=== PATIENT | female | born 1935 | race Caucasian/White ===

== ENCOUNTER → 2018-02-18 | Outpatient (CLI) | payer MEDICARE ==
--- NOTE | 2018-02-19 16:19 | EKG ---
Date Performed: 02/18/2018 Time Performed: 14:15:20 PTAGE: 82 years EKG: Atrial fibrillation. Abnormal ECG PREVIOUS TRACING : 07/24/1997 09.42 Atrial fibrillation is new since prior tracing. Clinical co rrelation is recommended. DOCTOR: Mack Muniz Interpretating Date/Time 02/19/2018 16:17:27
== END ==
LOC: HCAV 14:04
PROVIDERS: ATTEND Internal Medicine Hematology & Oncology
DX: D47.3 Essential (hemorrhagic) thrombocythemia (principal); R94.31 Abnormal electrocardiogram [ECG] [EKG]
CPT/HCPCS: 93005

== ENCOUNTER 2018-09-09 14:39 | Inpatient (IN) ==
--- NOTE | 2018-09-09 16:54 | ED ---
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 The patient follows with heme/onc for thrombocytosis and states that she went for routine blood work today. She later received a phone call stating that her hemoglobin was low (around 5) and to go to the ED. She denies lightheadedness, dizziness, fatigue, weakness, chills, chest pain, dyspnea, or palpitations. She has not noticed any bloody or black/ tarry stools. She takes Eliquis for A fib. Related Data Home Medications Medication Instructions Recorded Confirmed apixaban [Eliquis] 5 mg PO BID 09/09/18 09/09/18 atorvastatin 20 mg PO DAILY 09/09/18 09/09/18 diltiazem HCl 360 mg PO DAILY 09/09/18 09/09/18 furosemide 40 mg PO DAILY 09/09/18 09/09/18 hydroxyurea 500 mg PO BID 09/09/18 09/09/18 levothyroxine 200 mcg PO DAILY 09/09/18 09/09/18 Allergies Allergy/AdvReac Type Severity Reaction Status Date / Time Iodinated Contrast- Oral and Allergy Rash Verified 09/09/18 17:41 IV Dye [Contrast] Review of Systems ROS: all other systems reviewed are negative Constitutional Denies fever(s) Eyes Denies blurry vision ENT Denies nasal congestion Cardiovascular Denies chest pain Respiratory Denies cough Gastrointestinal Denies nausea Genitourinary Denies dysuria Musculoskeletal Denies back pain Neurologic Denies confusion Psychiatric Denies confusion PMFSH History History Provided By: Patient Medical History Medical History A-fib (Acute) COPD (chronic obstructive pulmonary disease) (Acute) HTN (hypertension) (Acute) Thrombocytosis (Acute) Surgical History Surgical History H/O hysterectomy for benign disease (Acute) S/P breast lumpectomy (Acute) Social History Social History Substance History: No History of Abuse Second Hand Smoke Exposure: No Smoking Status: Current some day smoker Tobacco Type: Cigarettes How Often Do You Have a Drink Containing Alcohol: 4 or more times a week Recent Travel in [facility] within the Last 8 Weeks: No Recent Out of Country Travel within the Last 8 Weeks: No Immunization History Tetanus Immunization: <5 Years Exam Const General: healthy appearing and no acute distress [facility] Head: normocephalic and atraumatic Face and sinus: normal facial exam Other: Mucosa pale Eyes General: appearance normal, both eyes and all related structures Pupils: PERRL Chest Chest: normal inspection of the chest Resp Effort & Inspection: normal respiratory effort Auscultation: no rhonchi and no wheezes Cardio Rate: regular rate Rhythm: regular rhythm GI Other: Soft and non-tender in all quadrants Other: Normal external rectal exam, no fissures or hemorrhoids noted. Stool black, guaiac positive. Rectal exam chaperoned by RN. Skin General: no rashes or lesions noted Neuro General: alert, awake, oriented x3 and no focal motor deficits Psych Affect: normal affect Procedures Hemaprompt Stool Procedural Steps Taken: specimen placed in appropriate test area, developer placed on specimen and control areas and controls appropriately positive and negative Hemaprompt Stool Result: positive Course Initial Documented Vital Signs Temperature 98.0 F 09/09/18 14:49 Pulse Rate 89 09/09/18 14:49 Respiratory Rate 18 09/09/18 14:49 Blood Pressure 167/74 H 09/09/18 14:49 Pulse Oximetry 97 09/09/18 14:49 Last Documented Vital Signs Temperature 98.0 F 09/09/18 14:49 Pulse Rate 85 09/09/18 16:39 Respiratory Rate 22 09/09/18 16:39 Blood Pressure 173/73 H 09/09/18 16:39 Pulse Oximetry 98 09/09/18 16:[address] [facility] Narrative Medical decision making narrative: Assessment: 83yF presenting with anemia and guaiac (+) stools Plan: EKG and monitor Labs, including type and screen Non-contrast CT abd/pelvis (patient reports IV contrast allergy) Addendum: Patient found to have a hemoglobin of 6.2, no other significant abnormalities on labs. She has a 4 cm AAA which she knew about, says that she believes it was 2 or 3 cm when it was last checked 3 years ago, is due to have it rechecked in October or November. 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 She will need transfusion of blood, re-evaluation, and consultation. Case discussed with Dr. Hudson ( resident), patient to be admitted under Dr. Daigle. Medical Screen Exam Complete: Yes Emergency Medical Condition: Yes Differential Diagnosis Differential Diagnosis: Differential diagnosis includes, but is not limited to: diverticulosis, colitis, AVM, internal hemorrhoid, mass, medication-induced coagulopathy Medical Records Medical records reviewed: Yes I reviewed the patient's medical records. Lab Data Lab results reviewed: Yes I reviewed the patient's lab results. Result diagrams: 09/09/18 17:15 09/09/18 17:15 Lab Results 09/09/18 09/09/18 09/09/18 Range/Units 17:15 17:15 17:15 WBC 9.8 (4.0-11.0) th/mm3 RBC 1.96 L (4.00-5.30) mil/mm3 Hgb 6.2 L* (11.6-15.3) gm/dL Hct 19.8 L* (35.0-46.0) % MCV 101.4 H (80.0-100.0) fL MCH 31.9 (27.0-34.0) pg MCHC 31.4 L (32.0-36.0) % RDW 17.7 H (11.6-17.2) % Plt Count 258 (150-450) th/mm3 MPV 7.9 (7.0-11.0) fL Prelim Diff (Auto) Slide review pending Neut % (Auto) 67.0 (16.0-70.0) % Lymph % (Auto) 17.8 (9.0-44.0) % Forrest % (Auto) 13.8 H (0.0-8.0) % Eos % (Auto) 1.0 (0.0-4.0) % Baso % (Auto) 0.4 (0.0-2.0) % Neut # (Auto) 6.6 (1.8-7.7) th/mm3 Lymph # (Auto) 1.8 (1.0-4.8) th/mm3 Forrest # (Auto) 1.4 H (0.0-0.9) th/mm3 Eos # (Auto) 0.1 (0.0-0.4) th/mm3 Baso # (Auto) 0.0 (0.0-0.2) th/mm3 WBC Differential . Diff Scan Auto diff confirmed Differential Comment . PT 11.4 (9.8-11.6) sec INR 1.1 Ratio APTT 26.1 (24.3-30.1) sec Sodium 135 L (136-145) meq/L Potassium 3.2 L (3.5-5.1) meq/L Chloride 97 L (98-107) meq/L Carbon Dioxide 28.5 (21.0-32.0) meq/L Anion Gap 10 (5-15) meq/L BUN 15 (7-18) mg/dL Creatinine 0.84 (0.50-1.00) mg/dL Estimated GFR 65 L (>89) mL/min Random Glucose 122 H (74-106) mg/dL Calcium 8.4 L (8.5-10.1) mg/dL Magnesium 1.8 (1.5-2.5) mg/dL Total Bilirubin 0.6 (0.2-1.0) mg/dL AST 14 L (15-37) U/L ALT 19 (10-53) U/L Alkaline Phosphatase 86 (45-117) U/L Total Protein 6.9 (6.4-8.2) g/dL Albumin 3.5 (3.4-5.0) g/dL Lipase 58 L (73-393) U/L Blood Type Blood Type Recheck Antibody Screen 09/09/18 Range/Units 17:17 WBC (4.0-11.0) th/mm3 RBC (4.00-5.30) mil/mm3 Hgb (11.6-15.3) gm/dL Hct (35.0-46.0) % MCV (80.0-100.0) fL MCH (27.0-34.0) pg MCHC (32.0-36.0) % RDW (11.6-17.2) % Plt Count (150-450) th/mm3 MPV (7.0-11.0) fL Prelim Diff (Auto) Neut % (Auto) (16.0-70.0) % Lymph % (Auto) (9.0-44.0) % Forrest % (Auto) (0.0-8.0) % Eos % (Auto) (0.0-4.0) % Baso % (Auto) (0.0-2.0) % Neut # (Auto) (1.8-7.7) th/mm3 Lymph # (Auto) (1.0-4.8) th/mm3 Forrest # (Auto) (0.0-0.9) th/mm3 Eos # (Auto) (0.0-0.4) th/mm3 Baso # (Auto) (0.0-0.2) th/mm3 WBC Differential Diff Scan Differential Comment PT (9.8-11.6) sec INR Ratio APTT (24.3-30.1) sec Sodium (136-145) meq/L Potassium (3.5-5.1) meq/L Chloride (98-107) meq/L Carbon Dioxide (21.0-32.0) meq/L Anion Gap (5-15) meq/L BUN (7-18) mg/dL Creatinine (0.50-1.00) mg/dL Estimated GFR (>89) mL/min Random Glucose (74-106) mg/dL Calcium (8.5-10.1) mg/dL Magnesium (1.5-2.5) mg/dL Total Bilirubin (0.2-1.0) mg/dL AST (15-37) U/L ALT (10-53) U/L Alkaline Phosphatase (45-117) U/L Total Protein (6.4-8.2) g/dL Albumin (3.4-5.0) g/dL Lipase (73-393) U/L Blood Type O Positive Blood Type Recheck Required Antibody Screen Negative Imaging Data Attestation: I personally reviewed and interpreted this imaging study as follows : Radiologist's impression: Abdomen/Pelvis CT 09/09/18 16:35 CONCLUSION: 1. Infrarenal abdominal aortic aneurysm measuring 4.3 x 4.4 cm. 2. Multiple liver and splenic granulomas. 3. Diffuse atherosclerotic changes throughout the aorta. 4. Scattered diverticulosis involving the descending and sigmoid colon without inflammatory changes. Discharge Plan Discharge Disposition Patient Disposition: 30 Still Patient Discharge Condition Condition: Stable Discharge Details Diagnosis: Acute lower gastrointestinal bleeding, Anemia requiring transfusions, Medication induced coagulopathy Physicians Team ED Provider: Matilda Gomez Primary Care Provider: Xavi Wen Rxs /Orders / Referrals /Forms Prescriptions: No Action furosemide 40 mg Tablet 40 mg PO DAILY RF: 0 hydroxyurea 500 mg Capsule 500 mg PO BID RF: 0 atorvastatin 20 mg Tablet 20 mg PO DAILY RF: 0 diltiazem HCl 360 mg Capsule,Extended Release 24hr 360 mg PO DAILY RF: 0 apixaban [Eliquis] 5 mg Tablet 5 mg PO BID RF: 0 levothyroxine 200 mcg Tablet 200 mcg PO DAILY RF: 0 Discharge Interventions Interventions: Vital Signs Last Done: 09/09/18 16:39 Status ED Status: With Doctor
--- NOTE | 2018-09-09 17:29 | CT ---
EXAM DATE: 09/09/2018 4:51 PM EDT AGE/SEX: 83 years / Female INDICATIONS: Blood in stool. CLINICAL DATA: This is the patient's initial encounter. Patient reports that signs and symptoms have been present for 1 day and indicates a pain score of 0/10. MEDICAL/SURGICAL HISTORY: Chronic obstructive pulmonary disease. Hypertension. Cardiovascular disease. Hysterectomy. RADIATION DOSE: 14.58 CTDI (mGy) COMPARISON: No prior exams available for comparison. TECHNIQUE: Multiple contiguous axial images were obtained through the abdomen. Images were obtained using multiple row detector helical technique. Using automated exposure control and adjustment of the mA and/or kV according to patient size, radiation dose was kept as low as reasonably achievable to o btain optimal diagnostic quality images. DICOM format image data is available electronically for rev iew and comparison. FINDINGS: Lower Lungs: Scarring in both lung bases. Otherwise the lung bases are grossly clear. Liver: The liver has a homogeneous density without space-occupying lesion. Multiple calcified granulo mas are seen throughout the liver. The gallbladder is unremarkable. There is no dilation of the bilia ry tree. Spleen: Homogeneous density without enlargement. Multiple splenic granulomas. Pancreas: Unremarkable without mass or calcification. Kidneys: Normal in size and shape. No evidence of mass or hydronephrosis. There are vascular calcifi cations bilaterally. No definite renal calculi are seen. However, this may be limited due to the vasc ular calcifications. Adrenal Glands: Unremarkable. Aorta: There is aneurysmal dilatation of the infrarenal abdominal aorta measuring 4.3 x 4.4 cm. Dif fuse atherosclerotic changes are seen throughout the aorta. Bowel/Mesentery: The bowel loops are grossly unremarkable. The cecum and sigmoid colon have a normal configuration. Scattered diverticulosis throughout the descending and sigmoid colon without inflamma tory changes. The appendix is unremarkable. No inflammatory changes are seen. No free fluid or locula faustino fluid collections. There is stool throughout the colon. Abdominal Wall: Intact. Retroperitoneum: No evidence of adenopathy in the retrocrural, para-aortic, or deep pelvic regions. Bladder: Contours are smooth. Reproductive Organs: No abnormal masses or calcifications seen. Inguinal: The inguinal region is unremarkable without evidence of adenopathy. Bony Structures: Diffuse bony degenerative changes. There is old compression injuries involving L2 a nd L3. CONCLUSION: 1. Infrarenal abdominal aortic aneurysm measuring 4.3 x 4.4 cm. 2. Multiple liver and splenic granulomas. 3. Diffuse atherosclerotic changes throughout the aorta. 4. Scattered diverticulosis involving the descending and sigmoid colon without inflammatory changes. Electronically signed by: Douglas Mortensen MD 09/09/2018 5:27 PM EDT
[2018-09-09 17:35] LABS: Baso % (Auto) 0.4 % (0.0-2.0); Eos # (Auto) 0.1 th/mm3 (0.0-0.4); Lymph # (Auto) 1.8 th/mm3 (1.0-4.8); Lymph % (Auto) 17.8 % (9.0-44.0); Mean Corpuscular HGB Conc 31.4 % (32.0-36.0); Mean Corpuscular Hemoglobin 31.9 pg (27.0-34.0); Mean Corpuscular Volume 101.4 fL (80.0-100.0); Mean Platelet Volume 7.9 fL (7.0-11.0); Mono # (Auto) 1.4 th/mm3 (0.0-0.9); Mono % (Auto) 13.8 % (0.0-8.0); Neut # (Auto) 6.6 th/mm3 (1.8-7.7); Platelet Count 258 th/mm3 (150-450); Red Blood Count 1.96 mil/mm3 (4.00-5.30); Red Cell Distribution Width 17.7 % (11.6-17.2); White Blood Count 9.8 th/mm3 (4.0-11.0)
[2018-09-09 17:42] LABS: Activated Partial Thrombo Time 26.1 sec (24.3-30.1); INR 1.1 Ratio; Prothrombin Time 11.4 sec (9.8-11.6)
[2018-09-09 17:45] LABS: Hematocrit 19.8 % (35.0-46.0); Hemoglobin 6.2 gm/dL (11.6-15.3)
[2018-09-09 17:53] LABS: Alanine Aminotransferase 19 U/L (10-53); Albumin 3.5 g/dL (3.4-5.0); Anion Gap 10 meq/L (5-15); Aspartate Aminotransferase 14 U/L (15-37); Blood Urea Nitrogen 15 mg/dL (7-18); Calcium 8.4 mg/dL (8.5-10.1); Carbon Dioxide 28.5 meq/L (21.0-32.0); Chloride 97 meq/L (98-107); Glomerular Filtration Rate 65 mL/min (>89); Glucose,Random 122 mg/dL (74-106); Lipase 58 U/L (73-393); Magnesium 1.8 mg/dL (1.5-2.5); Potassium 3.2 meq/L (3.5-5.1); Sodium 135 meq/L (136-145)
[2018-09-09 17:56] LABS: Alkaline Phosphatase 86 U/L (45-117); Total Protein 6.9 g/dL (6.4-8.2)
[2018-09-09] MEDS ORDERED: Sodium Chlor 0.9% Inj 250 ML IV.SIG SCH (19:00)
--- NOTE | 2018-09-09 19:11 | P.HPFP ---
History of Present Illness Primary Care Physician: Xavi Wen MD History of Present Illness: This patient is an 83-year-old female with a past medical history of thrombocytosis, atrial fibrillation on Eliquis, and uterine cancer in remission who presented to the ED after being found to have a hemoglobin of 6.2 on routine blood work. Patient reports that she was undergoing routine blood work for thrombocytosis when she was called later on in the day and was told that she had a critical value for her hemoglobin. Patient reports that she has been experiencing fatigue and tiredness over the last several weeks. During this time patient denies experiencing any dizziness, vision changes beyond those experienced after undergoing cataract surgery last week, as well as any changes in stool, bowel habits, or stool color. She denies visualizing any blood in the stool. She also denies any nausea or vomiting and reports that she normally has a bowel movement every 3 days with her last bowel movement being yesterday. Patient does report chronic shortness of breath due to her COPD. Patient reports that her last colonoscopy was 8-10 years ago which she says showed no polyps or issues. PMHx: Thrombocytosis diagnosed 4 years ago, HTN, COPD, CHF, Hypothyroidism, A- fib, Meds: Eliquis, atorvastatin, diltiazem, furosemide, hydroxyurea, levothyroxine Surgical Hx: Bilateral cataract surgery (one eye completed last Sunday and the other at the Sunday before that), total hysterectomy with bilateral salpingo-oophorectomy 1998 Allergies: Iodinated contrast oral and IV dye Family History: None Social: since 2010, 2 sons in good health, Worked for [employer] for 30 years, smoked since the age of 15 and has a 60 pack-year history, 1 cocktail vodka on the rocks nightly sometimes two drinks, no no illicit or recreational drug use Code: Full code Heme/ Onc Dr. Scott PCP Beatriz Esparza - Diagnosis (1) Anemia requiring transfusions (2) Acute lower gastrointestinal bleeding (3) Atrial fibrillation (4) Abdominal aortic aneurysm (AAA) (5) Congestive heart failure (CHF) (6) Thrombocytosis (7) Hypertension (8) COPD (chronic obstructive pulmonary disease) (9) Hypothyroidism (10) Nutrition, metabolism, and development symptoms Review of Systems Constitutional: Denies chills, Denies fever(s), Denies headache(s), Denies dizziness, endorses fatigue and tiredness over the last several weeks Eyes: Denies negative change in vision, Denies double vision, Denies blurry vision, patient had bilateral cataract surgery with one eye done last Sunday and the other eye the Sunday before that and reports having better vision since then. Cardiovascular: Denies chest pain, Denies fast heart rate, Denies rapid, pounding, or irregular heartbeat Respiratory: Endorses chronic shortness of breath Gastrointestinal: Denies abdominal pain, Denies constipation, Denies loose stools, Denies nausea, Denies vomiting, denies hematochezia, denies coffee- ground emesis, denies blood in stool Genitourinary: Denies difficulty urinating, Denies painful urination, Denies urinary frequency, Denies blood in urine PMFSH - History History Provided By: Patient - Medical History Medical History: Medical History (Last Reviewed 09/09/18 @ 16:54 by Matilda Gomez DO) A-fib COPD (chronic obstructive pulmonary disease) HTN (hypertension) Thrombocytosis - Surgical History Surgical History: Surgical History (Last Reviewed 09/09/18 @ 16:54 by Matilda Gomez DO) H/O hysterectomy for benign disease S/P breast lumpectomy - Tobacco History Second Hand Smoke Exposure: No Tobacco Use In Past 30 Days: Yes Smoking Status: Current some day smoker Tobacco Type: Cigarettes - Alcohol History How Often Do You Have a Drink Containing Alcohol: 4 or more times a week - Substance Use History Substance History: No History of Abuse - Travel History Recent Travel in the [place] Within the Last 8 Weeks: No Recent Travel Out of the Country Within the Last 8 Weeks: No - Immunization History Tetanus Immunization: <5 Years Medications and Allergies Active Medications: Active Medications Sodium Chloride (Ns Inj) 250 mls @ 15 mls/hr IV.SIG ONCE ATTILA Stop: 09/10/18 11:39 Allergies Allergy/AdvReac Type Severity Reaction Status Date / Time Iodinated Contrast- Oral and Allergy Rash Verified 09/09/18 17:41 IV Dye [Contrast] Home Medications Medication Instructions Recorded Confirmed Type apixaban [Eliquis] 5 mg PO BID 09/09/18 09/09/18 History atorvastatin 20 mg PO DAILY 09/09/18 09/09/18 History diltiazem HCl 360 mg PO DAILY 09/09/18 09/09/18 History furosemide 40 mg PO DAILY 09/09/18 09/09/18 History hydroxyurea 500 mg PO BID 09/09/18 09/09/18 History levothyroxine 200 mcg PO DAILY 09/09/18 09/09/18 History Exam Vital signs: Vital Signs 09/09/18 14:49 09/09/18 16:39 Temperature 98.0 F Pulse Rate 89 85 Respiratory Rate 18 22 Blood Pressure 167/74 H 173/73 H Pulse Oximetry 97 98 Intake & Output 09/09/18 09/09/18 09/10/18 06:59 18:59 06:59 Weight 70.307 kg Narrative: GENERAL: Thin and pleasant elderly female. No acute distress. SKIN: Warm and dry. No rash. EYES: No scleral icterus. No injection or drainage. PERRLA. EOMI. HENT: Normocephalic. Atraumatic. MMM. OP Benign. NECK: Supple, trachea midline. No JVD or lymphadenopathy. No thyroid nodules. CARDIOVASCULAR: Irregularly irregular heart rate RESPIRATORY: Breath sounds decreased bilaterally with no accessory muscle use. Lungs globally clear to auscultation in all lung valente. No crackles on auscultation. GASTROINTESTINAL: Abdomen soft, non-tender, nondistended. BS WNL. MUSCULOSKELETAL: No cyanosis. Strength grossly WNL. 1+ bilateral nonpitting edema up to just above the ankles. BACK: Nontender without obvious deformity. No CVA tenderness. NEURO/PSYCH: Afocal. Awake, alert, and oriented x3. Patient very talkative and was easily distracted constant redirection was required. Results - Labs Result diagrams: 09/09/18 17:15 09/09/18 17:15 Abnormal lab results 09/09/18 09/09/18 09/09/18 Range/Units 17:15 17:15 18:35 RBC 1.96 L (4.00-5.30) mil/mm3 Hgb 6.2 L* (11.6-15.3) gm/dL Hct 19.8 L* (35.0-46.0) % MCV 101.4 H (80.0-100.0) fL MCHC 31.4 L (32.0-36.0) % RDW 17.7 H (11.6-17.2) % Howard % (Auto) 13.8 H (0.0-8.0) % Howard # (Auto) 1.4 H (0.0-0.9) th/mm3 Sodium 135 L (136-145) meq/L Potassium 3.2 L (3.5-5.1) meq/L Chloride 97 L (98-107) meq/L Estimated GFR 65 L (>89) mL/min Random Glucose 122 H (74-106) mg/dL Calcium 8.4 L (8.5-10.1) mg/dL AST 14 L (15-37) U/L Lipase 58 L (73-393) U/L MTS Gel Crossmatch See Detail Short CBC 09/09/18 Range/Units 17:15 WBC 9.8 (4.0-11.0) th/mm3 Hgb 6.2 L* (11.6-15.3) gm/dL Hct 19.8 L* (35.0-46.0) % Plt Count 258 (150-450) th/mm3 BMP 09/09/18 17:15 Sodium 135 L Potassium 3.2 L Chloride 97 L Carbon Dioxide 28.5 BUN 15 Creatinine 0.84 Calcium 8.4 L Liver Function 09/09/18 Range/Units 17:15 Total Bilirubin 0.6 (0.2-1.0) mg/dL AST 14 L (15-37) U/L ALT 19 (10-53) U/L Alkaline Phosphatase 86 (45-117) U/L Albumin 3.5 (3.4-5.0) g/dL - Imaging Impressions Abdomen/Pelvis CT 09/09/18 16:35 CONCLUSION: 1. Infrarenal abdominal aortic aneurysm measuring 4.3 x 4.4 cm. 2. Multiple liver and splenic granulomas. 3. Diffuse atherosclerotic changes throughout the aorta. 4. Scattered diverticulosis involving the descending and sigmoid colon without inflammatory changes. Caprini VTE Risk Assessment Caprini VTE Risk Assessment: Moderate/High Risk (score >= 2) VTE Pharmacological Exception Reason: Active bleeding Caprini Risk Assessment Model: Point Value = 1 Point Value = 2 Point Value = 3 Point Value = 5 Age 41-60 Minor surgery BMI > 25 kg/m2 Swollen legs Varicose veins or History of unexplained or recurrent spontaneous Oral contraceptives or hormone replacement Sepsis (< 1 month) Serious lung disease, including pneumonia (< 1 month) Abnormal pulmonary function Acute myocardial infarction Congestive heart failure (< 1 month) History of inflammatory bowel disease Medical patient at bed rest Age 61-74 Arthroscopic surgery Major open surgery (> 45 min) Laparoscopic surgery (> 45 min) Malignancy Confined to bed (> 72 hours) Immobilizing plaster cast Central venous access Age >= 75 History of VTE Family history of VTE Factor V Leiden Prothrombin [id number] Lupus anticoagulant Anticardiolipin antibodies Elevated serum homocysteine Heparin-induced thrombocytopenia Other congenital or acquired thrombophilia Stroke (< 1 month) Elective arthroplasty Hip, pelvis, or leg fracture Acute spinal cord injury (< 1 month) Prophylaxis Regimen: Total Risk Factor Score Risk Level Prophylaxis Regimen 0-1 Low Early ambulation 2 Moderate Order ONE of the following: *Sequential Compression Device (SCD) *Heparin 5000 units SQ BID 3-4 Higher Order ONE of the following medications: *Heparin 5000 units SQ TID *Enoxaparin/Lovenox 40 mg SQ daily (WT < 150 kg, CrCl > 30 mL/min) *Enoxaparin/Lovenox 30 mg SQ daily (WT < 150 kg, CrCl > 10-29 mL/min) *Enoxaparin/Lovenox 30 mg SQ BID (WT < 150 kg, CrCl > 30 mL/min) AND/OR *Sequential Compression Device (SCD) 5 or more Highest Order ONE of the following medications: *Heparin 5000 units SQ TID (Preferred with Epidurals) *Enoxaparin/Lovenox 40 mg SQ daily (WT < 150 kg, CrCl > 30 mL/min) *Enoxaparin/Lovenox 30 mg SQ daily (WT < 150 kg, CrCl > 10-29 mL/min) *Enoxaparin/Lovenox 30 mg SQ BID (WT < 150 kg, CrCl > 30 mL/min) AND *Sequential Compression Device (SCD) Assessment and Plan - Assessment (1) Anemia requiring transfusions Code(s): D64.9 - Anemia, unspecified Status: Acute Plan: This patient is an 83-year-old female with a past medical history of atrial fibrillation on Eliquis, thrombocytopenia, and uterine cancer in remission admitted for hemoglobin of 6.2 in the setting of positive guaiac. Patient currently being treated for thrombocytopenia and found to have critically low hemoglobin on routine blood work. Patient appears to have a macrocytic anemia -Transfuse 1 unit of packed red blood cells -Trend H/H - Monitor for transfusion reactions (2) Acute lower gastrointestinal bleeding Code(s): K92.2 - Gastrointestinal hemorrhage, unspecified Status: Acute Plan: Patient found to be guaiac positive after receiving a critical hemoglobin value of 6.2 while begin Eliquis. Patient's last colonoscopy was over 10 years ago the patient reports had no polyps or issues at time of colonoscopy. Abdominal CT revealed multiple liver and splenic granulomas, and abdominal aortic aneurysm as well as scattered diverticulosis including the descending and sigmoid colon without inflammatory changes. GI has been consulted and patient is begun magnesium citrate regimen for colonoscopy tomorrow. Patient currently receiving 1 unit of packed red blood cells. -Follow-up with GI consult -Follow-up colonoscopy results -Trend H/H -Transfuse at hemoglobin below 8 (3) Atrial fibrillation Code(s): I48.91 - Unspecified atrial fibrillation Status: Acute Plan: Patient has history of atrial fibrillation previously anticoagulated on Eliquis. Eliquis held for possible active GI bleeding. Patient rate controlled on diltiazem. -Continue home diltiazem (4) Abdominal aortic aneurysm (AAA) Code(s): I71.4 - Abdominal aortic aneurysm, without rupture Status: Acute Plan: Patient found to have abdominal aortic aneurysm on abdominal CT. Aneurysm measuring 4.3 x 4.4 cm. Patient has [id number] smoking history. -Further management and possible surgical consult will be considered after patient is hemodynamically stable (5) Congestive heart failure (CHF) Code(s): I50.9 - Heart failure, unspecified Status: Acute Plan: Patient known to have CHF. Ejection fraction currently unknown. Patient had 1 + bilateral nonpitting edema which she reports is near normal for her. No crackles auscultated on lung exam. -Continue home furosemide (6) Thrombocytosis Code(s): D47.3 - Essential (hemorrhagic) thrombocythemia Status: Acute Plan: Patient treated for thrombocytosis with hydroxyurea. Platelet count on admission was controlled at 258. -Continue home hydroxyurea (7) Hypertension Code(s): I10 - Essential (primary) hypertension Status: Acute Plan: Patient has history of hypertension. Patient with elevated blood pressure on admission. -Continue home diltiazem -Continue home furosemide (8) COPD (chronic obstructive pulmonary disease) Code(s): J44.9 - Chronic obstructive pulmonary disease, unspecified Status: Acute Plan: Patient with a history of COPD as well as a [id number] smoking history. Patient currently satting 98% on room air. -Continue to monitor respiratory effort as well as oxygen saturation (9) Hypothyroidism Code(s): E03.9 - Hypothyroidism, unspecified Status: Acute Plan: Patient known to have hypothyroidism and on 200 mcg of levothyroxine daily. -Continue home levothyroxine (10) Nutrition, metabolism, and development symptoms Code(s): R63.8 - Other symptoms and signs concerning food and fluid intake Status: Acute Plan: Fluids: Begin normal saline at 110 mL/h after infusion of red blood cells Electrolytes: Replete as needed Nutrition: Liquid diet until 6 in the morning of September 10 then n.p.o. thereafter DVT prophylaxis: Anticoagulation contraindicated in the setting of active GI bleed, DVT prophylaxis with SCDs.
[2018-09-09] MEDS ORDERED: Acetaminophen 325 MG Tablet PO PRN (19:39)
[2018-09-09] MEDS ORDERED: Magnesium Citrate Liq 300 ML Bottle PO ONE (20:19)
[2018-09-09] MEDS: Hydroxyurea 500 MG Capsule PO SCH (22:45)
[2018-09-10] MEDS ORDERED: Sod Chloride 0.9% Inj 1,000 ML IV.CONT SCH (02:20)
[2018-09-10] MEDS ORDERED: Magnesium Citrate Liq 300 ML Bottle PO ONE (02:20)
[2018-09-10] MEDS ORDERED: Haloperidol Inj 5 MG/ML Ampul IV.PUSH PRN (08:48)
[2018-09-10] MEDS ORDERED: LORazepam 1 MG Tablet PO PRN (08:48)
[2018-09-10] MEDS ORDERED: Sodium Chlor 0.9% Inj 250 ML IV.SIG SCH (09:00)
[2018-09-10 09:24] LABS: Baso # (Auto) 0.1 th/mm3 (0.0-0.2); Baso % (Auto) 0.5 % (0.0-2.0); Eos # (Auto) 0.1 th/mm3 (0.0-0.4); Eos % (Auto) 0.8 % (0.0-4.0); Hemoglobin 7.4 gm/dL (11.6-15.3); Lymph # (Auto) 1.3 th/mm3 (1.0-4.8); Lymph % (Auto) 12.3 % (9.0-44.0); Mean Corpuscular HGB Conc 33.6 % (32.0-36.0); Mean Corpuscular Hemoglobin 32.3 pg (27.0-34.0); Mean Corpuscular Volume 96.1 fL (80.0-100.0); Mono # (Auto) 1.3 th/mm3 (0.0-0.9); Mono % (Auto) 12.6 % (0.0-8.0); Neut # (Auto) 7.8 th/mm3 (1.8-7.7); Neut % (Auto) 73.8 % (16.0-70.0); Platelet Count 235 th/mm3 (150-450); Red Blood Count 2.29 mil/mm3 (4.00-5.30); Red Cell Distribution Width 18.1 % (11.6-17.2); White Blood Count 10.5 th/mm3 (4.0-11.0)
[2018-09-10] MEDS: Magnesium Citrate Liq 300 ML Bottle PO ONE ×2 (09:31→17:33)
[2018-09-10] MEDS: Hydroxyurea 500 MG Capsule PO SCH ×2 (09:32→20:50)
[2018-09-10] MEDS: dilTIAZem CD 180 MG Capsule PO SCH (09:32)
[2018-09-10] MEDS: Furosemide 40 MG Tablet PO SCH (09:32)
[2018-09-10 09:36] LABS: Albumin 3.3 g/dL (3.4-5.0); Anion Gap 10 meq/L (5-15); Aspartate Aminotransferase 13 U/L (15-37); Blood Urea Nitrogen 11 mg/dL (7-18); Calcium 8.5 mg/dL (8.5-10.1); Carbon Dioxide 30.5 meq/L (21.0-32.0); Chloride 98 meq/L (98-107); Glomerular Filtration Rate 75 mL/min (>89); Glucose,Random 98 mg/dL (74-106); Potassium 3.1 meq/L (3.5-5.1); Sodium 138 meq/L (136-145)
[2018-09-10 09:37] LABS: Alanine Aminotransferase 17 U/L (10-53)
[2018-09-10 09:40] LABS: Alkaline Phosphatase 82 U/L (45-117); Total Protein 6.6 g/dL (6.4-8.2)
--- NOTE | 2018-09-10 11:42 | P.CONGI ---
History of Present Illness Consult date: 09/10/18 Consult reason: Stool guaiac positive Hemoglobin 6.2 History of uterine cancer on Eliquis Chief complaint: GI Bleed, Acquired Coagulopathy History of Present Illness: This patient is an 83-year-old female with past history of thrombocytosis, atrial fibrillation and uterine cancer. Patient is currently being treated with Eliquis for her atrial fibrillation last dose being 09/09/2018. Surgical history includes total hysterectomy- with bilateral salpingo-oophorectomy in 1998. Patient was asked to come to the emergency room due to a critically low hemoglobin value noted on blood work done as ordered by her hematology/ oncologist Dr. Scott. Patient has history of thrombocytosis and states that she has regular labs done every 3-4 months. Hemoglobin noted to be 6.9 and she was sent to the ER for evaluation and blood transfusion. Patient reports generalized weakness, mild fatigue and shortness of breath over the last month. She states that her stools have been dark but denies them being black or tarry. Patient denies any use of NSAIDs. States only known family history is that her knees past of colorectal cancer. She states EGD/colonoscopy done 8-10 years ago where there were no abnormal findings per patient. Patient states she has been a tobacco smoker for greater than 60 years and stopped same a few weeks ago. Patient endorses that she drinks alcohol daily a cocktail 1-2 vodka cocktails. Patient denies illicit drug use. Patient denies any obvious bleeding in her blood or urine. Denies any abdominal pain nausea or vomiting. Patient has completed 2 bottles of magnesium citrate and is awaiting colonoscopy procedure today. <Claudia Wang - Last Filed: 09/10/18 11:46> Review of Systems All other systems reviewed negative except as stated in HPI <Claudia Wang - Last Filed: 09/10/18 11:46> PMFSH - History History Provided By: Patient - Medical History Medical History: Medical History (Last Reviewed 09/09/18 @ 16:54 by Matilda Gomez DO) A-fib COPD (chronic obstructive pulmonary disease) HTN (hypertension) Thrombocytosis - Surgical History Surgical History: Surgical History (Last Reviewed 09/09/18 @ 16:54 by Matilda Gomez DO) H/O hysterectomy for benign disease S/P breast lumpectomy - Tobacco History Second Hand Smoke Exposure: No Tobacco Use In Past 30 Days: Yes Smoking Status: Current some day smoker Tobacco Type: Cigarettes - Alcohol History How Often Do You Have a Drink Containing Alcohol: 4 or more times a week - Substance Use History Substance History: No History of Abuse - Travel History Recent Travel in the [facility] Within the Last 8 Weeks: No Recent Travel Out of the Country Within the Last 8 Weeks: No - Immunization History Tetanus Immunization: <5 Years <Claudia Wang - Last Filed: 09/10/18 11:46> - Medical History Medical History: Medical History (Last Reviewed 09/09/18 @ 16:54 by Matilda Gomez DO) A-fib COPD (chronic obstructive pulmonary disease) HTN (hypertension) Thrombocytosis - Surgical History Surgical History: Surgical History (Last Reviewed 09/09/18 @ 16:54 by Matilda Gomez DO) H/O hysterectomy for benign disease S/P breast lumpectomy <Frankie Ambrocio - Last Filed: 09/10/18 14:49> Medications and Allergies Active Medications: Active Medications Acetaminophen (Tylenol) 650 mg PO Q4H PRN PRN Reason: Temp > 100.4 Atorvastatin Calcium (Lipitor) 20 mg PO DAILY [facility] Last Admin: 09/10/18 09:32 Dose: 20 mg Diltiazem HCl (Cardizem Cd 24hr) 360 mg PO DAILY [facility] Last Admin: 09/10/18 09:32 Dose: 360 mg Flumazenil (Romazecon Inj) 0.2 mg IV.PUSH Q1M PRN PRN Reason: OVERSEDATION Furosemide (Lasix) 40 mg PO DAILY [facility] Last Admin: 09/10/18 09:32 Dose: 40 mg Haloperidol Lactate (Haldol Inj) 1 mg IV.PUSH Q15M PRN PRN Reason: for severe agitation Hydroxyurea (Hydrea) 500 mg PO BID [facility] Last Admin: 09/10/18 09:32 Dose: 500 mg Sodium Chloride (Ns Inj) 250 mls @ 15 mls/hr IV.SIG ONCE [facility] Stop: 09/10/18 11:39 Last Admin: 09/09/18 23:05 Dose: 15 mls/hr Potassium Chloride/Sodium Chloride (Ns + Kcl 40 Meq Inj) 1,000 mls @ 110 mls/ hr IV.CONT .Q9H6M [facility] Sodium Chloride (Ns Inj) 250 mls @ 15 mls/hr IV.SIG ONCE [facility] Stop: 09/11/18 01:39 Levothyroxine Sodium (Synthroid) 200 mcg PO DAILY@0600 [facility] Last Admin: 09/10/18 06:50 Dose: 200 mcg Lorazepam (Ativan) 2 mg PO Q2H PRN PRN Reason: for CIWA 11-14 Lorazepam (Ativan Inj) 2 mg IV.PUSH Q2H PRN PRN Reason: for CIWA 11-14 Lorazepam (Ativan Inj) 2 mg IV.PUSH Q1H PRN PRN Reason: for CIWA 15-20 Lorazepam (Ativan Inj) 2 mg IV.PUSH Q15M PRN PRN Reason: for CIWA > 20 Lorazepam (Ativan Inj) 1 mg IV.PUSH Q4H PRN PRN Reason: for CIWA 8-10 Lorazepam (Ativan) 1 mg PO Q4H PRN PRN Reason: for CIWA 8-10 Sodium Chloride (Ns Flush) 2 ml IV.FLUSH BID [facility] Last Admin: 09/09/18 22:43 Dose: 2 ml Sodium Chloride (Ns Flush) 2 ml IV.FLUSH PRN PRN PRN Reason: FLUSH AFTER USING IV ACCESS <Claudia Wang - Last Filed: 09/10/18 11:46> Active Medications: Active Medications Acetaminophen (Tylenol) 650 mg PO Q4H PRN PRN Reason: Temp > 100.4 Atorvastatin Calcium (Lipitor) 20 mg PO DAILY [facility] Last Admin: 09/10/18 09:32 Dose: 20 mg Diltiazem HCl (Cardizem Cd 24hr) 360 mg PO DAILY [facility] Last Admin: 09/10/18 09:32 Dose: 360 mg Flumazenil (Romazecon Inj) 0.2 mg IV.PUSH Q1M PRN PRN Reason: OVERSEDATION Furosemide (Lasix) 40 mg PO DAILY [facility] Last Admin: 09/10/18 09:32 Dose: 40 mg Haloperidol Lactate (Haldol Inj) 1 mg IV.PUSH Q15M PRN PRN Reason: for severe agitation Hydroxyurea (Hydrea) 500 mg PO BID [facility] Last Admin: 09/10/18 09:32 Dose: 500 mg Potassium Chloride/Sodium Chloride (Ns + Kcl 40 Meq Inj) 1,000 mls @ 110 mls/ hr IV.CONT .Q9H6M [facility] Sodium Chloride (Ns Inj) 250 mls @ 15 mls/hr IV.SIG ONCE [facility] Stop: 09/11/18 01:39 Levothyroxine Sodium (Synthroid) 200 mcg PO DAILY@0600 [facility] Last Admin: 09/10/18 06:50 Dose: 200 mcg Lorazepam (Ativan) 2 mg PO Q2H PRN PRN Reason: for CIWA 11-14 Lorazepam (Ativan Inj) 2 mg IV.PUSH Q2H PRN PRN Reason: for CIWA 11-14 Lorazepam (Ativan Inj) 2 mg IV.PUSH Q1H PRN PRN Reason: for CIWA 15-20 Lorazepam (Ativan Inj) 2 mg IV.PUSH Q15M PRN PRN Reason: for CIWA > 20 Lorazepam (Ativan Inj) 1 mg IV.PUSH Q4H PRN PRN Reason: for CIWA 8-10 Lorazepam (Ativan) 1 mg PO Q4H PRN PRN Reason: for CIWA 8-10 Pantoprazole Sodium (Protonix Inj) 40 mg IV.PUSH Q12HR [facility] Sodium Chloride (Ns Flush) 2 ml IV.FLUSH BID [facility] Last Admin: 09/09/18 22:43 Dose: 2 ml Sodium Chloride (Ns Flush) 2 ml IV.FLUSH PRN PRN PRN Reason: FLUSH AFTER USING IV ACCESS <Frankie Ambrocio E - Last Filed: 09/10/18 14:49> Allergies Allergy/AdvReac Type Severity Reaction Status Date / Time Iodinated Contrast- Oral and Allergy Rash Verified 09/09/18 17:41 IV Dye [Contrast] Home Medications Medication Instructions Recorded Confirmed Type apixaban [Eliquis] 5 mg PO BID 09/09/18 09/09/18 History atorvastatin 20 mg PO DAILY 09/09/18 09/09/18 History diltiazem HCl 360 mg PO DAILY 09/09/18 09/09/18 History furosemide 40 mg PO DAILY 09/09/18 09/09/18 History hydroxyurea 500 mg PO BID 09/09/18 09/09/18 History levothyroxine 200 mcg PO DAILY 09/09/18 09/09/18 History Exam Vital signs: Vital Signs 09/09/18 14:49 09/09/18 16:39 09/09/18 20:00 Temperature 98.0 F 97.6 F Pulse Rate 89 85 101 H Respiratory Rate 18 22 18 Blood Pressure 167/74 H 173/73 H 151/73 H Pulse Oximetry 97 98 97 09/09/18 22:55 09/09/18 23:22 09/10/18 00:00 Temperature 97.6 F 97.9 F 97.7 F Pulse Rate 84 77 84 Respiratory Rate 18 18 Blood Pressure 165/70 H 156/70 H 165/70 H Pulse Oximetry 98 09/10/18 02:15 09/10/18 04:00 09/10/18 08:00 Temperature 98 F 98.0 F 97.7 F Pulse Rate 89 89 92 H Respiratory Rate 18 18 17 Blood Pressure 152/68 H 129/62 Pulse Oximetry 98 100 Intake & Output 09/09/18 09/10/18 09/10/18 18:59 06:59 18:59 Intake Total 400 / 400 Balance 400 / 400 Weight 70.307 kg 69.8 kg Intake: Intake (Blood Product) Amt 400 / 400 Rbc As-3 Leukoreduced Unit 400 / 400 [id number] Other: # Voids 3 Date of Last Bowel Movement 09/08/18 - Constitutional no acute distress - Routine HEENT Exam Head: Present: normocephalic - Routine Respiratory Exam Present: CTA bilaterally, wheezes. Absent: accessory muscle use - Routine Abdominal Exam Present: soft, normoactive bowel sounds. Absent: tenderness, distended, guarding, firm - Routine Extremities Exam Present: full ROM. Absent: edema - Routine Skin Exam Present: dry, warm - Routine Neurological Exam Present: alert, oriented X3 <Wang,Claudia - Last Filed: 09/10/18 11:46> Vital signs: Vital Signs 09/09/18 14:49 09/09/18 16:39 09/09/18 20:00 Temperature 98.0 F 97.6 F Pulse Rate 89 85 101 H Respiratory Rate 18 22 18 Blood Pressure 167/74 H 173/73 H 151/73 H Pulse Oximetry 97 98 97 09/09/18 22:55 09/09/18 23:22 09/10/18 00:00 Temperature 97.6 F 97.9 F 97.7 F Pulse Rate 84 77 84 Respiratory Rate 18 18 Blood Pressure 165/70 H 156/70 H 165/70 H Pulse Oximetry 98 09/10/18 02:15 09/10/18 04:00 09/10/18 08:00 Temperature 98 F 98.0 F 97.7 F Pulse Rate 89 89 92 H Respiratory Rate 18 18 17 Blood Pressure 152/68 H 129/62 Pulse Oximetry 98 100 09/10/18 12:00 09/10/18 13:36 09/10/18 13:52 Temperature 97.8 F 97.2 F L 96.1 F L Pulse Rate 104 H 97 H 101 H Respiratory Rate 20 18 18 Blood Pressure 140/64 136/61 137/65 Pulse Oximetry 96 98 100 09/10/18 14:32 Temperature 97.2 F L Pulse Rate 87 Respiratory Rate 18 Blood Pressure 141/64 H Pulse Oximetry 96 Intake & Output 09/09/18 09/10/18 09/10/18 18:59 06:59 18:59 Intake Total 400 / 400 400 / 400 Balance 400 / 400 400 / 400 Weight 70.307 kg 69.8 kg Intake: Intake (Blood Product) Amt 400 / 400 400 / 400 Rbc As-3 Leukoreduced Unit 400 / 400 [id number] Rbc As-3 Leukoreduced Unit 400 / 400 [id number] Other: # Voids 3 Date of Last Bowel Movement 09/08/18 09/08/18 <Frankie Ambrocio E - Last Filed: 09/10/18 14:49> Results - Labs CBC & Chem 7: 09/10/18 07:04 09/10/18 08:33 Labs: Laboratory Results - last 24 hr 09/09/18 09/09/18 09/09/18 17:15 17:15 17:15 WBC 9.8 RBC 1.96 L Hgb 6.2 L* Hct 19.8 L* MCV 101.4 H MCH 31.9 MCHC 31.4 L RDW 17.7 H Plt Count 258 MPV 7.9 Prelim Diff (Auto) Slide review pending Neut % (Auto) 67.0 Lymph % (Auto) 17.8 Kimball % (Auto) 13.8 H Eos % (Auto) 1.0 Baso % (Auto) 0.4 Neut # (Auto) 6.6 Lymph # (Auto) 1.8 Kimball # (Auto) 1.4 H Eos # (Auto) 0.1 Baso # (Auto) 0.0 WBC Differential . Diff Scan Auto diff confirmed Differential Comment . PT 11.4 INR 1.1 APTT 26.1 Sodium 135 L Potassium 3.2 L Chloride 97 L Carbon Dioxide 28.5 Anion Gap 10 BUN 15 Creatinine 0.84 Estimated GFR 65 L Random Glucose 122 H Calcium 8.4 L Magnesium 1.8 Total Bilirubin 0.6 AST 14 L ALT 19 Alkaline Phosphatase 86 Total Protein 6.9 Albumin 3.5 Lipase 58 L Blood Type Blood Type Recheck Antibody Screen MTS Gel Crossmatch Bld Prod Order Comment 09/09/18 09/09/18 09/10/18 17:17 18:35 07:04 WBC 10.5 RBC 2.29 L Hgb 7.4 L Hct 22.0 L MCV 96.1 D MCH 32.3 MCHC 33.6 RDW 18.1 H Plt Count 235 MPV 8.0 Prelim Diff (Auto) Neut % (Auto) 73.8 H Lymph % (Auto) 12.3 Kimball % (Auto) 12.6 H Eos % (Auto) 0.8 Baso % (Auto) 0.5 Neut # (Auto) 7.8 H Lymph # (Auto) 1.3 Kimball # (Auto) 1.3 H Eos # (Auto) 0.1 Baso # (Auto) 0.1 WBC Differential . Diff Scan Differential Comment Auto diff final PT INR APTT Sodium Potassium Chloride Carbon Dioxide Anion Gap BUN Creatinine Estimated GFR Random Glucose Calcium Magnesium Total Bilirubin AST ALT Alkaline Phosphatase Total Protein Albumin Lipase Blood Type O Positive Blood Type Recheck Required Antibody Screen Negative MTS Gel Crossmatch See Detail Bld Prod Order Comment 09/10/18 09/10/18 08:33 08:49 WBC RBC Hgb Hct MCV MCH MCHC RDW Plt Count MPV Prelim Diff (Auto) Neut % (Auto) Lymph % (Auto) Kimball % (Auto) Eos % (Auto) Baso % (Auto) Neut # (Auto) Lymph # (Auto) Kimball # (Auto) Eos # (Auto) Baso # (Auto) WBC Differential Diff Scan Differential Comment PT INR APTT Sodium 138 Potassium 3.1 L Chloride 98 Carbon Dioxide 30.5 Anion Gap 10 BUN 11 Creatinine 0.74 Estimated GFR 75 L Random Glucose 98 Calcium 8.5 Magnesium Total Bilirubin 1.3 H AST 13 L ALT 17 Alkaline Phosphatase 82 Total Protein 6.6 Albumin 3.3 L Lipase Blood Type Blood Type Recheck Antibody Screen MTS Gel Crossmatch See Detail Bld Prod Order Comment - Imaging Impressions Abdomen/Pelvis CT 09/09/18 16:35 CONCLUSION: 1. Infrarenal abdominal aortic aneurysm measuring 4.3 x 4.4 cm. 2. Multiple liver and splenic granulomas. 3. Diffuse atherosclerotic changes throughout the aorta. 4. Scattered diverticulosis involving the descending and sigmoid colon without inflammatory changes. <Claudia Wang - Last Filed: 09/10/18 11:46> - Labs CBC & Chem 7: 09/10/18 07:04 09/10/18 08:33 Labs: Laboratory Results - last 24 hr 09/09/18 09/09/18 09/09/18 17:15 17:15 17:15 WBC 9.8 RBC 1.96 L Hgb 6.2 L* Hct 19.8 L* MCV 101.4 H MCH 31.9 MCHC 31.4 L RDW 17.7 H Plt Count 258 MPV 7.9 Prelim Diff (Auto) Slide review pending Neut % (Auto) 67.0 Lymph % (Auto) 17.8 Kimball % (Auto) 13.8 H Eos % (Auto) 1.0 Baso % (Auto) 0.4 Neut # (Auto) 6.6 Lymph # (Auto) 1.8 Kimball # (Auto) 1.4 H Eos # (Auto) 0.1 Baso # (Auto) 0.0 WBC Differential . Diff Scan Auto diff confirmed Differential Comment . PT 11.4 INR 1.1 APTT 26.1 Sodium 135 L Potassium 3.2 L Chloride 97 L Carbon Dioxide 28.5 Anion Gap 10 BUN 15 Creatinine 0.84 Estimated GFR 65 L Random Glucose 122 H Calcium 8.4 L Magnesium 1.8 Total Bilirubin 0.6 AST 14 L ALT 19 Alkaline Phosphatase 86 Total Protein 6.9 Albumin 3.5 Lipase 58 L Blood Type Blood Type Recheck Antibody Screen MTS Gel Crossmatch Bld Prod Order Comment 09/09/18 09/09/18 09/10/18 17:17 18:35 07:04 WBC 10.5 RBC 2.29 L Hgb 7.4 L Hct 22.0 L MCV 96.1 D MCH 32.3 MCHC 33.6 RDW 18.1 H Plt Count 235 MPV 8.0 Prelim Diff (Auto) Neut % (Auto) 73.8 H Lymph % (Auto) 12.3 Kimball % (Auto) 12.6 H Eos % (Auto) 0.8 Baso % (Auto) 0.5 Neut # (Auto) 7.8 H Lymph # (Auto) 1.3 Kimball # (Auto) 1.3 H Eos # (Auto) 0.1 Baso # (Auto) 0.1 WBC Differential . Diff Scan Differential Comment Auto diff final PT INR APTT Sodium Potassium Chloride Carbon Dioxide Anion Gap BUN Creatinine Estimated GFR Random Glucose Calcium Magnesium Total Bilirubin AST ALT Alkaline Phosphatase Total Protein Albumin Lipase Blood Type O Positive Blood Type Recheck Required Antibody Screen Negative MTS Gel Crossmatch See Detail Bld Prod Order Comment 09/10/18 09/10/18 08:33 08:49 WBC RBC Hgb Hct MCV MCH MCHC RDW Plt Count MPV Prelim Diff (Auto) Neut % (Auto) Lymph % (Auto) Kimball % (Auto) Eos % (Auto) Baso % (Auto) Neut # (Auto) Lymph # (Auto) Kimball # (Auto) Eos # (Auto) Baso # (Auto) WBC Differential Diff Scan Differential Comment PT INR APTT Sodium 138 Potassium 3.1 L Chloride 98 Carbon Dioxide 30.5 Anion Gap 10 BUN 11 Creatinine 0.74 Estimated GFR 75 L Random Glucose 98 Calcium 8.5 Magnesium Total Bilirubin 1.3 H AST 13 L ALT 17 Alkaline Phosphatase 82 Total Protein 6.6 Albumin 3.3 L Lipase Blood Type Blood Type Recheck Antibody Screen MTS Gel Crossmatch See Detail Bld Prod Order Comment - Imaging Impressions Abdomen/Pelvis CT 09/09/18 16:35 CONCLUSION: 1. Infrarenal abdominal aortic aneurysm measuring 4.3 x 4.4 cm. 2. Multiple liver and splenic granulomas. 3. Diffuse atherosclerotic changes throughout the aorta. 4. Scattered diverticulosis involving the descending and sigmoid colon without inflammatory changes. <Frankie Ambrocio - Last Filed: 09/10/18 14:49> Assessment and Plan (1) Acute lower gastrointestinal bleeding Status: Acute Code(s): K92.2 - Gastrointestinal hemorrhage, unspecified - Plan This patient is an 83-year-old female with past history of thrombocytosis, atrial fibrillation and uterine cancer. Patient is currently being treated with Eliquis for her atrial fibrillation last dose being 09/09/2018. Surgical history includes total hysterectomy- with bilateral salpingo-oophorectomy in 1998. Patient was asked to come to the emergency room due to a critically low hemoglobin value noted on blood work done as ordered by her hematology/ oncologist Dr. Scott. Patient has history of thrombocytosis and states that she has regular labs done every 3-4 months. Hemoglobin noted to be 6.9 and she was sent to the ER for evaluation and blood transfusion. Patient reports generalized weakness, mild fatigue and shortness of breath over the last month. She states that her stools have been dark but denies them being black or tarry. Patient denies any use of NSAIDs. States only known family history is that her knees past of colorectal cancer. She states EGD/colonoscopy done 8-10 years ago where there were no abnormal findings per patient. Patient states she has been a tobacco smoker for greater than 60 years and stopped same a few weeks ago. Patient endorses that she drinks alcohol daily a cocktail 1-2 vodka cocktails. Patient denies illicit drug use. Patient denies any obvious bleeding in her blood or urine. Denies any abdominal pain nausea or vomiting. Patient has completed 2 bottles of magnesium citrate and is awaiting colonoscopy procedure today. GI bleeding Hemoglobin 6.2 hematocrit 19.8 upon patient arrival to emergency room. Patient was transfused 1 unit of packed cells, most recent hemoglobin 7.4 hematocrit 22.0. Patient denies any obvious bleeding. For colonoscopy today. Plan -Diet as appropriate postprocedure -Monitor for bleeding -Transfuse as needed -Monitor labs -Avoid NSAIDs. Anticoagulants -PPI -Supportive care -Further recommendations to follow based on patient status and findings This patient has been seen by myself and Dr. Ambrocio and this note is written on his behalf - Attending Attestation Dr. Ambrocio <Claudia Wang - Last Filed: 09/10/18 11:46> (1) Acute lower gastrointestinal bleeding Status: Acute Code(s): K92.2 - Gastrointestinal hemorrhage, unspecified - Plan Patient seen and examined Agree with above Continue with current supportive care Monitor labs We will proceed with an EGD and a colonoscopy next <Frankie Ambrocio - Last Filed: 09/10/18 14:49>
[2018-09-10 13:38] VITALS: RESP 18
--- NOTE | 2018-09-10 14:15 | P.PNFP ---
Subjective Interval history: 83 yo female admitted for severe anemia requiring blood transfusion due to suspected GI bleed being seen for follow up. Feels somewhat fatigued, improved a bit since yesterday after she received her blood. Otherwise feeling well, no abdominal pain, CP, SOB, N/V. <Jose Leach S - 09/10/18 14:14> Results - Labs Result diagrams: 09/10/18 17:00 09/10/18 08:33 <Billy Daigle - 09/10/18 17:24> Abnormal lab results 09/09/18 09/09/18 09/09/18 Range/Units 17:15 17:15 18:35 RBC 1.96 L (4.00-5.30) mil/mm3 Hgb 6.2 L* (11.6-15.3) gm/dL Hct 19.8 L* (35.0-46.0) % MCV 101.4 H (80.0-100.0) fL MCHC 31.4 L (32.0-36.0) % RDW 17.7 H (11.6-17.2) % Neut % (Auto) (16.0-70.0) % [place] % (Auto) 13.8 H (0.0-8.0) % Neut # (Auto) (1.8-7.7) th/mm3 [place] # (Auto) 1.4 H (0.0-0.9) th/mm3 Sodium 135 L (136-145) meq/L Potassium 3.2 L (3.5-5.1) meq/L Chloride 97 L (98-107) meq/L Estimated GFR 65 L (>89) mL/min Random Glucose 122 H (74-106) mg/dL Calcium 8.4 L (8.5-10.1) mg/dL Total Bilirubin (0.2-1.0) mg/dL AST 14 L (15-37) U/L Albumin (3.4-5.0) g/dL Lipase 58 L (73-393) U/L MTS Gel Crossmatch See Detail 09/10/18 09/10/18 09/10/18 Range/Units 07:04 08:33 08:49 RBC 2.29 L (4.00-5.30) mil/mm3 Hgb 7.4 L (11.6-15.3) gm/dL Hct 22.0 L (35.0-46.0) % MCV (80.0-100.0) fL MCHC (32.0-36.0) % RDW 18.1 H (11.6-17.2) % Neut % (Auto) 73.8 H (16.0-70.0) % [place] % (Auto) 12.6 H (0.0-8.0) % Neut # (Auto) 7.8 H (1.8-7.7) th/mm3 [place] # (Auto) 1.3 H (0.0-0.9) th/mm3 Sodium (136-145) meq/L Potassium 3.1 L (3.5-5.1) meq/L Chloride (98-107) meq/L Estimated GFR 75 L (>89) mL/min Random Glucose (74-106) mg/dL Calcium (8.5-10.1) mg/dL Total Bilirubin 1.3 H (0.2-1.0) mg/dL AST 13 L (15-37) U/L Albumin 3.3 L (3.4-5.0) g/dL Lipase (73-393) U/L MTS Gel Crossmatch See Detail 09/10/18 Range/Units 17:00 RBC (4.00-5.30) mil/mm3 Hgb 9.0 L (11.6-15.3) gm/dL Hct 26.5 L (35.0-46.0) % MCV (80.0-100.0) fL MCHC (32.0-36.0) % RDW (11.6-17.2) % Neut % (Auto) (16.0-70.0) % [place] % (Auto) (0.0-8.0) % Neut # (Auto) (1.8-7.7) th/mm3 [place] # (Auto) (0.0-0.9) th/mm3 Sodium (136-145) meq/L Potassium (3.5-5.1) meq/L Chloride (98-107) meq/L Estimated GFR (>89) mL/min Random Glucose (74-106) mg/dL Calcium (8.5-10.1) mg/dL Total Bilirubin (0.2-1.0) mg/dL AST (15-37) U/L Albumin (3.4-5.0) g/dL Lipase (73-393) U/L MTS Gel Crossmatch Short CBC 09/09/18 09/10/18 09/10/18 Range/Units 17:15 07:04 17:00 WBC 9.8 10.5 (4.0-11.0) th/mm3 Hgb 6.2 L* 7.4 L 9.0 L (11.6-15.3) gm/dL Hct 19.8 L* 22.0 L 26.5 L (35.0-46.0) % Plt Count 258 235 (150-450) th/mm3 BMP 09/09/18 09/10/18 17:15 08:33 Sodium 135 L 138 Potassium 3.2 L 3.1 L Chloride 97 L 98 Carbon Dioxide 28.5 30.5 BUN 15 11 Creatinine 0.84 0.74 Calcium 8.4 L 8.5 Liver Function 09/09/18 09/10/18 Range/Units 17:15 08:33 Total Bilirubin 0.6 1.3 H (0.2-1.0) mg/dL AST 14 L 13 L (15-37) U/L ALT 19 17 (10-53) U/L Alkaline Phosphatase 86 82 (45-117) U/L Albumin 3.5 3.3 L (3.4-5.0) g/dL <Billy Daigle - 09/10/18 17:24> Abnormal lab results 09/09/18 09/09/18 09/09/18 Range/Units 17:15 17:15 18:35 RBC 1.96 L (4.00-5.30) mil/mm3 Hgb 6.2 L* (11.6-15.3) gm/dL Hct 19.8 L* (35.0-46.0) % MCV 101.4 H (80.0-100.0) fL MCHC 31.4 L (32.0-36.0) % RDW 17.7 H (11.6-17.2) % Neut % (Auto) (16.0-70.0) % [place] % (Auto) 13.8 H (0.0-8.0) % Neut # (Auto) (1.8-7.7) th/mm3 [place] # (Auto) 1.4 H (0.0-0.9) th/mm3 Sodium 135 L (136-145) meq/L Potassium 3.2 L (3.5-5.1) meq/L Chloride 97 L (98-107) meq/L Estimated GFR 65 L (>89) mL/min Random Glucose 122 H (74-106) mg/dL Calcium 8.4 L (8.5-10.1) mg/dL Total Bilirubin (0.2-1.0) mg/dL AST 14 L (15-37) U/L Albumin (3.4-5.0) g/dL Lipase 58 L (73-393) U/L MTS Gel Crossmatch See Detail 09/10/18 09/10/18 09/10/18 Range/Units 07:04 08:33 08:49 RBC 2.29 L (4.00-5.30) mil/mm3 Hgb 7.4 L (11.6-15.3) gm/dL Hct 22.0 L (35.0-46.0) % MCV (80.0-100.0) fL MCHC (32.0-36.0) % RDW 18.1 H (11.6-17.2) % Neut % (Auto) 73.8 H (16.0-70.0) % [place] % (Auto) 12.6 H (0.0-8.0) % Neut # (Auto) 7.8 H (1.8-7.7) th/mm3 [place] # (Auto) 1.3 H (0.0-0.9) th/mm3 Sodium (136-145) meq/L Potassium 3.1 L (3.5-5.1) meq/L Chloride (98-107) meq/L Estimated GFR 75 L (>89) mL/min Random Glucose (74-106) mg/dL Calcium (8.5-10.1) mg/dL Total Bilirubin 1.3 H (0.2-1.0) mg/dL AST 13 L (15-37) U/L Albumin 3.3 L (3.4-5.0) g/dL Lipase (73-393) U/L MTS Gel Crossmatch See Detail Short CBC 09/09/18 09/10/18 Range/Units 17:15 07:04 WBC 9.8 10.5 (4.0-11.0) th/mm3 Hgb 6.2 L* 7.4 L (11.6-15.3) gm/dL Hct 19.8 L* 22.0 L (35.0-46.0) % Plt Count 258 235 (150-450) th/mm3 BMP 09/09/18 09/10/18 17:15 08:33 Sodium 135 L 138 Potassium 3.2 L 3.1 L Chloride 97 L 98 Carbon Dioxide 28.5 30.5 BUN 15 11 Creatinine 0.84 0.74 Calcium 8.4 L 8.5 Liver Function 09/09/18 09/10/18 Range/Units 17:15 08:33 Total Bilirubin 0.6 1.3 H (0.2-1.0) mg/dL AST 14 L 13 L (15-37) U/L ALT 19 17 (10-53) U/L Alkaline Phosphatase 86 82 (45-117) U/L Albumin 3.5 3.3 L (3.4-5.0) g/dL <Jose Leach S - 09/10/18 14:14> - Imaging Impressions Abdomen/Pelvis CT 09/09/18 16:35 CONCLUSION: 1. Infrarenal abdominal aortic aneurysm measuring 4.3 x 4.4 cm. 2. Multiple liver and splenic granulomas. 3. Diffuse atherosclerotic changes throughout the aorta. 4. Scattered diverticulosis involving the descending and sigmoid colon without inflammatory changes. <Billy Daigle - 09/10/18 17:24> Impressions Abdomen/Pelvis CT 09/09/18 16:35 CONCLUSION: 1. Infrarenal abdominal aortic aneurysm measuring 4.3 x 4.4 cm. 2. Multiple liver and splenic granulomas. 3. Diffuse atherosclerotic changes throughout the aorta. 4. Scattered diverticulosis involving the descending and sigmoid colon without inflammatory changes. <Jose Leach - 09/10/18 14:14> Physical Exam Vital signs: Vital Signs 09/09/18 20:00 09/09/18 22:55 09/09/18 23:22 Temperature 97.6 F 97.6 F 97.9 F Pulse Rate 101 H 84 77 Respiratory Rate 18 18 Blood Pressure 151/73 H 165/70 H 156/70 H Pulse Oximetry 97 09/10/18 00:00 09/10/18 02:15 09/10/18 04:00 Temperature 97.7 F 98 F 98.0 F Pulse Rate 84 89 89 Respiratory Rate 18 18 18 Blood Pressure 165/70 H 152/68 H Pulse Oximetry 98 98 09/10/18 08:00 09/10/18 12:00 09/10/18 13:36 Temperature 97.7 F 97.8 F 97.2 F L Pulse Rate 92 H 104 H 97 H Respiratory Rate 17 20 18 Blood Pressure 129/62 140/64 136/61 Pulse Oximetry 100 96 98 09/10/18 13:52 09/10/18 14:32 09/10/18 15:20 Temperature 96.1 F L 97.2 F L 97.3 F L Pulse Rate 101 H 87 85 Respiratory Rate 18 18 20 Blood Pressure 137/65 141/64 H 125/59 L Pulse Oximetry 100 96 95 09/10/18 16:00 Temperature 97.3 F L Pulse Rate 92 H Respiratory Rate 18 Blood Pressure 149/65 H Pulse Oximetry 94 L Intake & Output 09/09/18 09/10/18 09/10/18 18:59 06:59 18:59 Intake Total 400 / 400 600 / 600 Balance 400 / 400 600 / 600 Weight 70.307 kg 69.8 kg Intake: Anesthesia Amount 200 / 200 Intake (Blood Product) Amt 400 / 400 400 / 400 Rbc As-3 Leukoreduced Unit 400 / 400 [id number] Rbc As-3 Leukoreduced Unit 400 / 400 [id number] Other: # Voids 3 Date of Last Bowel Movement 09/08/18 09/08/18 <Billy Daigle - 09/10/18 17:24> Vital Signs 09/09/18 14:49 09/09/18 16:39 09/09/18 20:00 Temperature 98.0 F 97.6 F Pulse Rate 89 85 101 H Respiratory Rate 18 22 18 Blood Pressure 167/74 H 173/73 H 151/73 H Pulse Oximetry 97 98 97 09/09/18 22:55 09/09/18 23:22 09/10/18 00:00 Temperature 97.6 F 97.9 F 97.7 F Pulse Rate 84 77 84 Respiratory Rate 18 18 Blood Pressure 165/70 H 156/70 H 165/70 H Pulse Oximetry 98 09/10/18 02:15 09/10/18 04:00 09/10/18 08:00 Temperature 98 F 98.0 F 97.7 F Pulse Rate 89 89 92 H Respiratory Rate 18 18 17 Blood Pressure 152/68 H 129/62 Pulse Oximetry 98 100 09/10/18 12:00 09/10/18 13:36 09/10/18 13:52 Temperature 97.8 F 97.2 F L 96.1 F L Pulse Rate 104 H 97 H 101 H Respiratory Rate 20 18 18 Blood Pressure 140/64 136/61 137/65 Pulse Oximetry 96 98 100 Intake & Output 09/09/18 09/10/18 09/10/18 18:59 06:59 18:59 Intake Total 400 / 400 0 / 0 Balance 400 / 400 0 / 0 Weight 70.307 kg 69.8 kg Intake: Intake (Blood Product) Amt 400 / 400 0 / 0 Rbc As-3 Leukoreduced Unit 400 / 400 [id number] Rbc As-3 Leukoreduced Unit 0 / 0 [id number] Other: # Voids 3 Date of Last Bowel Movement 09/08/18 09/08/18 <HanyJose S - 09/10/18 14:14> - Constitutional no acute distress, average body habitus, cooperative <LeachMikey S - 14:14> - Routine HEENT Exam Head: Present: normocephalic, atraumatic <HanyJose S - 09/10/18 14:14> ENT: Present: mucous membranes moist <HanyJose S - 09/10/18 14:14> - Routine Respiratory Exam Present: CTA bilaterally. Absent: accessory muscle use, wheezes, crackles < Jose Leach S - 09/10/18 14:14> - Routine Cardiovascular Exam Present: RRR, S1, S2. Absent: murmur <Jose Leach S - 09/10/18 14:14> - Routine Abdominal Exam Present: soft. Absent: tenderness, distended <Jose Leach S - 09/10/18 14:14 > - Routine Extremities Exam Absent: cyanosis, edema <Jose Leach S - 09/10/18 14:14> - Routine Skin Exam Present: intact <Jose Leach - 09/10/18 14:14> - Routine Neurological Exam Present: alert, oriented X3 <Jose Leach S - 09/10/18 14:14> - Routine Psychiatric Exam Present: normal affect, normal thought process <Joes Leach S - 09/10/18 14: 14> Assessment and Plan - Assessment (1) Anemia requiring transfusions Code(s): D64.9 - Anemia, unspecified Status: Acute (2) Acute lower gastrointestinal bleeding Code(s): K92.2 - Gastrointestinal hemorrhage, unspecified Status: Acute (3) Atrial fibrillation Code(s): I48.91 - Unspecified atrial fibrillation Status: Acute (4) Abdominal aortic aneurysm (AAA) Code(s): I71.4 - Abdominal aortic aneurysm, without rupture Status: Acute (5) Congestive heart failure (CHF) Code(s): I50.9 - Heart failure, unspecified Status: Acute (6) Thrombocytosis Code(s): D47.3 - Essential (hemorrhagic) thrombocythemia Status: Acute (7) Hypertension Code(s): I10 - Essential (primary) hypertension Status: Acute (8) COPD (chronic obstructive pulmonary disease) Code(s): J44.9 - Chronic obstructive pulmonary disease, unspecified Status: Acute (9) Hypothyroidism Code(s): E03.9 - Hypothyroidism, unspecified Status: Acute (10) Nutrition, metabolism, and development symptoms Code(s): R63.8 - Other symptoms and signs concerning food and fluid intake Status: Acute <Billy Daigle - 09/10/18 17:24> (1) Anemia requiring transfusions Code(s): D64.9 - Anemia, unspecified Status: Acute Plan: S/p transfusion of 1 unit PRBC, Hgb increased from 6.2 to 7.4 -Hold anticoagulation (no Eliquis or heparin product) -Transfuse another unit PRBC today -Manage GIB as below (2) Acute lower gastrointestinal bleeding Code(s): K92.2 - Gastrointestinal hemorrhage, unspecified Status: Acute Plan: GIB, likely lower -GI consulted, appreciate recs * To perform colonoscopy today * PPI * Avoid NSAIDs -Trend H/H: Transfuse at hemoglobin below 8 due to cardiac history (3) Atrial fibrillation Code(s): I48.91 - Unspecified atrial fibrillation Status: Acute Plan: Stable, HR at goal -Holding Eliquis -Continue home diltiazem (4) Abdominal aortic aneurysm (AAA) Code(s): I71.4 - Abdominal aortic aneurysm, without rupture Status: Acute Plan: Patient found to have abdominal aortic aneurysm on abdominal CT. Aneurysm measuring 4.3 x 4.4 cm. Patient has 26-wlpl-fbyg smoking history. -Outpatient follow up U/S or CT recommended in 6-12 months (5) Congestive heart failure (CHF) Code(s): I50.9 - Heart failure, unspecified Status: Acute Plan: Stable -Continue home furosemide (6) Thrombocytosis Code(s): D47.3 - Essential (hemorrhagic) thrombocythemia Status: Acute Plan: Patient treated for thrombocytosis with hydroxyurea. Platelet count on admission was controlled at 258. -Continue home hydroxyurea (7) Hypertension Code(s): I10 - Essential (primary) hypertension Status: Acute Plan: BP stable and at goal -Continue home diltiazem -Continue home furosemide (8) COPD (chronic obstructive pulmonary disease) Code(s): J44.9 - Chronic obstructive pulmonary disease, unspecified Status: Acute Plan: Patient with a history of COPD as well as a 48-efya-lunu smoking history. Patient currently satting 98% on room air. -Continue to monitor respiratory effort as well as oxygen saturation (9) Hypothyroidism Code(s): E03.9 - Hypothyroidism, unspecified Status: Acute Plan: Stable -Continue home levothyroxine (10) Nutrition, metabolism, and development symptoms Code(s): R63.8 - Other symptoms and signs concerning food and fluid intake Status: Acute Plan: Fluids: Begin normal saline at 110 mL/h after infusion of red blood cells Electrolytes: Replete as needed Nutrition: Regular diet after colonoscopy, unless additional procedure needed DVT prophylaxis: Anticoagulation contraindicated in the setting of active GI bleed, DVT prophylaxis with SCDs. <Jose Leach - 09/10/18 14:04> - Attending Attestation The exam, history, and the medical decision-making described in the above note were completed with the assistance of the resident physician. I reviewed and agree with the findings presented. I attest that I had a [id number] encounter with the patient on the same day, and personally performed and documented my assessment and findings in the medical record. <Billy Daigle - 09/10/18 17:24> <Jose Leach S - Last Filed: 09/10/18 14:04> (4) Abdominal aortic aneurysm (AAA) Qualifiers: Presence of rupture: without rupture Qualified Code(s): I71.4 - Abdominal aortic aneurysm, without rupture <Billy Daigle - Last Filed: 09/10/18 17:24> (4) Abdominal aortic aneurysm (AAA) Qualifiers: Presence of rupture: without rupture Qualified Code(s): I71.4 - Abdominal aortic aneurysm, without rupture <Jose Leach S - Last Filed: 09/10/18 14:04> (4) Abdominal aortic aneurysm (AAA) Qualifiers: Presence of rupture: without rupture Qualified Code(s): I71.4 - Abdominal aortic aneurysm, without rupture <Billy Daigle - Last Filed: 09/10/18 17:24> (4) Abdominal aortic aneurysm (AAA) Qualifiers: Presence of rupture: without rupture Qualified Code(s): I71.4 - Abdominal aortic aneurysm, without rupture
--- NOTE | 2018-09-10 15:26 | P.PCN ---
Date of procedure: 09/10/18 Pre-op diagnosis: Anemia, GI bleed Procedure: PROCEDURE PERFORMED EGD with cautery followed by a colonoscopy with biopsy PROCEDURE: The procedure, risks and benefits were discussed with Patient/POA and informed consent was obtained. Anesthesia sedated Patient with Diprivan. Patient was placed in the left lateral decubitus position. EGD: The Pentax videoscope was introduced through the oropharynx and advanced to the second portion of the duodenum under direct visualization. Retroflexion was performed in the stomach. FINDINGS: The esophagus this appeared to be unremarkable and within normal limits at the GE junction was a mild Schatzki ring The stomach there was a small hiatal hernia otherwise gastric mucosa was unremarkable and within normal limits The duodenum there were 2 small AVMs noted in the descending duodenum both were cauterized otherwise duodenal mucosa was unremarkable and within normal limits 1 of the AVMs as I was cauterizing did bleed but minimally Colonoscopy: The Pentax videoscope was introduced through the rectum and advanced to cecum where the ileocecal valve and appendiceal orifice were identified. Retroflexion was performed in the rectum. Colonic prep was fair FINDINGS: Colonic withdrawal time greater than 6 minutes. As the scope was slowly withdrawn colonic mucosa was carefully inspected there was a small diminutive polyp in the ascending colon this was removed using cold biopsy forceps otherwise colonic mucosa was unremarkable and within normal limits the patient was noted to have moderate to moderately severe diverticulosis throughout the colon retroflexion in the rectum was unremarkable and so his rectal examination ESTIMATED BLOOD LOSS: Minimal SPECIMENS REMOVED: Colon biopsy COMPLICATIONS: None IMPRESSION: Mild Schatzki ring Small hiatal hernia Duodenal AVMs Colon polyp Diverticulosis PLAN: Await biopsies Caution with anticoagulation Continue PPI Advance diet as tolerated Monitor labs and transfuse as needed If anemia persists or worsens patient will need capsule endoscopy as she may have further AVMs in the small bowel Colonoscopy in 5 years Follow-up in clinic in 3-4 weeks Anesthesia: JODI Surgeon: Frankie Ambrocio Condition: stable Disposition: floor
[2018-09-10 17:14] LABS: Hematocrit 26.5 % (35.0-46.0)
[2018-09-10] MEDS: Pantoprazole Inj 40 MG Vial IV.PUSH SCH ×2 (17:34→20:50)
[2018-09-10 23:39] LABS: Baso % (Auto) 0.3 % (0.0-2.0); Eos # (Auto) 0.1 th/mm3 (0.0-0.4); Eos % (Auto) 0.8 % (0.0-4.0); Hematocrit 25.1 % (35.0-46.0); Hemoglobin 8.5 gm/dL (11.6-15.3); Lymph # (Auto) 1.4 th/mm3 (1.0-4.8); Mean Corpuscular HGB Conc 33.9 % (32.0-36.0); Mean Corpuscular Hemoglobin 32.4 pg (27.0-34.0); Mean Corpuscular Volume 95.4 fL (80.0-100.0); Mono # (Auto) 1.2 th/mm3 (0.0-0.9); Mono % (Auto) 11.9 % (0.0-8.0); Neut # (Auto) 7.7 th/mm3 (1.8-7.7); Platelet Count 211 th/mm3 (150-450); Red Blood Count 2.63 mil/mm3 (4.00-5.30); Red Cell Distribution Width 17.5 % (11.6-17.2); White Blood Count 10.4 th/mm3 (4.0-11.0)
[2018-09-11 07:04] LABS: Hematocrit 26.7 % (35.0-46.0); Hematocrit 27.6 % (35.0-46.0); Mean Corpuscular HGB Conc 32.5 % (32.0-36.0); Mean Corpuscular Hemoglobin 31.7 pg (27.0-34.0); Mean Corpuscular Volume 97.4 fL (80.0-100.0); Platelet Count 213 th/mm3 (150-450); Red Blood Count 2.83 mil/mm3 (4.00-5.30); Red Cell Distribution Width 17.3 % (11.6-17.2); White Blood Count 9.4 th/mm3 (4.0-11.0)
[2018-09-11] MEDS: Hydroxyurea 500 MG Capsule PO SCH (08:52)
[2018-09-11] MEDS: Furosemide 40 MG Tablet PO SCH (08:52)
[2018-09-11] MEDS: dilTIAZem CD 180 MG Capsule PO SCH (08:52)
[2018-09-11] MEDS: Pantoprazole Inj 40 MG Vial IV.PUSH SCH (08:53)
[2018-09-11 10:07] VITALS: BP 175/76; PULSE 96; TEMP 97.6; O2SAT 98
--- NOTE | 2018-09-11 10:27 | P.PNFP ---
Subjective Interval history: No acute events overnight. Patient doing well this morning. Explained the patient what was found on her colonoscopy. Patient is tolerating diet well. No longer having any symptoms. Patient states that she is ready go home. She denies fevers, chest pain, shortness of breath, nausea vomiting, and abdominal pain. Results - Labs Result diagrams: 09/11/18 06:38 09/10/18 08:33 Abnormal lab results 09/09/18 09/10/18 09/10/18 Range/Units 18:35 08:49 17:00 RBC (4.00-5.30) mil/mm3 Hgb 9.0 L (11.6-15.3) gm/dL Hct 26.5 L (35.0-46.0) % RDW (11.6-17.2) % Neut % (Auto) (16.0-70.0) % [place] % (Auto) (0.0-8.0) % [place] # (Auto) (0.0-0.9) th/mm3 MTS Gel Crossmatch See Detail See Detail 09/10/18 09/11/18 09/11/18 Range/Units 23:28 06:38 06:38 RBC 2.63 L 2.83 L (4.00-5.30) mil/mm3 Hgb 8.5 L 9.0 L 9.0 L (11.6-15.3) gm/dL Hct 25.1 L 27.6 L 26.7 L (35.0-46.0) % RDW 17.5 H 17.3 H (11.6-17.2) % Neut % (Auto) 74.0 H (16.0-70.0) % [place] % (Auto) 11.9 H (0.0-8.0) % [place] # (Auto) 1.2 H (0.0-0.9) th/mm3 MTS Gel Crossmatch Short CBC 09/10/18 09/10/18 09/11/18 Range/Units 17:00 23:28 06:38 WBC 10.4 9.4 (4.0-11.0) th/mm3 Hgb 9.0 L 8.5 L 9.0 L (11.6-15.3) gm/dL Hct 26.5 L 25.1 L 27.6 L (35.0-46.0) % Plt Count 211 213 (150-450) th/mm3 09/11/18 Range/Units 06:38 WBC (4.0-11.0) th/mm3 Hgb 9.0 L (11.6-15.3) gm/dL Hct 26.7 L (35.0-46.0) % Plt Count (150-450) th/mm3 Physical Exam Vital signs: Vital Signs 09/10/18 12:00 09/10/18 13:36 09/10/18 13:52 Temperature 97.8 F 97.2 F L 96.1 F L Pulse Rate 104 H 97 H 101 H Respiratory Rate 20 18 18 Blood Pressure 140/64 136/61 137/65 Pulse Oximetry 96 98 100 09/10/18 14:32 09/10/18 15:20 09/10/18 16:00 Temperature 97.2 F L 97.3 F L 97.3 F L Pulse Rate 87 85 92 H Respiratory Rate 18 20 18 Blood Pressure 141/64 H 125/59 L 149/65 H Pulse Oximetry 96 95 94 L 09/10/18 20:00 09/11/18 00:00 09/11/18 04:00 Temperature 98.6 F 98 F 98.1 F Pulse Rate 130 H 107 H 97 H Respiratory Rate 18 18 18 Blood Pressure 138/72 132/59 L 132/78 Pulse Oximetry 93 L 98 99 09/11/18 08:00 Temperature 97.6 F Pulse Rate 96 H Respiratory Rate 18 Blood Pressure 175/76 H Pulse Oximetry 98 Intake & Output 09/10/18 09/11/18 09/11/18 18:59 06:59 18:59 Intake Total 600 / 600 0 / 0 Output Total Balance 590 / 590 0 / 0 Weight 69.8 kg Intake: Oral 0 / 0 Anesthesia Amount 200 / 200 Intake (Blood Product) Amt 400 / 400 Rbc As-3 Leukoreduced Unit 400 / 400 [id number] Output: Stool Other: # Voids 10 2 Date of Last Bowel Movement 09/08/18 09/08/18 09/10/18 Weight On Admission 69.8 kg Narrative: GENERAL: Thin and pleasant elderly female. No acute distress. SKIN: Warm and dry. No rash. CARDIOVASCULAR: Irregularly irregular heart rate RESPIRATORY: Breath sounds decreased bilaterally with no accessory muscle use. Lungs globally clear to auscultation in all lung valente. No crackles on auscultation. GASTROINTESTINAL: Abdomen soft, non-tender, nondistended. BS WNL. MUSCULOSKELETAL: No cyanosis. Strength grossly WNL. 1+ bilateral nonpitting edema up to just above the ankles. BACK: Nontender without obvious deformity. No CVA tenderness. NEURO/PSYCH: Afocal. Awake, alert, and oriented x3. Assessment and Plan - Assessment (1) Acute upper GI bleed Code(s): K92.2 - Gastrointestinal hemorrhage, unspecified Status: Acute Plan: GI consulted, appreciate recommendations. Colonoscopy demonstrated mild schatzki ring, small hiatal hernia, duodenal AVMs , colon polyp-biopsy pending, diverticulosis Patient to go home on Protonix 40 mg twice daily Discontinued Eliquis CBC repeat in 1 week Colonoscopy in 5 years Follow-up with GI in 3-4 weeks (2) Anemia requiring transfusions Code(s): D64.9 - Anemia, unspecified Status: Acute Plan: S/p transfusion of 2 unit PRBC 10/23 H/H 9.0/26.7 today Repeat CBC in 1 week (3) Atrial fibrillation Code(s): I48.91 - Unspecified atrial fibrillation Status: Acute Plan: Stable, HR at goal -Discontinue Eliquis, discuss with PCP as outpatient -Continue home diltiazem (4) Abdominal aortic aneurysm (AAA) Code(s): I71.4 - Abdominal aortic aneurysm, without rupture Status: Acute Plan: Patient found to have abdominal aortic aneurysm on abdominal CT. Aneurysm measuring 4.3 x 4.4 cm. Patient has [id number]-ebtl smoking history. -Outpatient follow up U/S or CT recommended in 6-12 months (5) Congestive heart failure (CHF) Code(s): I50.9 - Heart failure, unspecified Status: Acute Plan: Stable -Continue home furosemide (6) Thrombocytosis Code(s): D47.3 - Essential (hemorrhagic) thrombocythemia Status: Acute Plan: Patient treated for thrombocytosis with hydroxyurea. Platelet count on admission was controlled at 258. -Continue home hydroxyurea (7) Hypertension Code(s): I10 - Essential (primary) hypertension Status: Acute Plan: BP stable and at goal -Continue home diltiazem -Continue home furosemide (8) COPD (chronic obstructive pulmonary disease) Code(s): J44.9 - Chronic obstructive pulmonary disease, unspecified Status: Acute Plan: Patient with a history of COPD as well as a 60-sggl-xucz smoking history. Patient currently satting 98% on room air. -Continue to monitor respiratory effort as well as oxygen saturation (9) Hypothyroidism Code(s): E03.9 - Hypothyroidism, unspecified Status: Acute Plan: Stable -Continue home levothyroxine (10) Nutrition, metabolism, and development symptoms Code(s): R63.8 - Other symptoms and signs concerning food and fluid intake Status: Acute Plan: Fluids: PO hydration Electrolytes: Replete as needed Nutrition: Heart Healthy diet DVT prophylaxis: Anticoagulation contraindicated in the setting of active GI bleed, DVT prophylaxis with SCDs. (4) Abdominal aortic aneurysm (AAA) Qualifiers: Presence of rupture: without rupture Qualified Code(s): I71.4 - Abdominal aortic aneurysm, without rupture
--- NOTE | 2018-09-12 01:38 | ECG ---
Date Performed: 09/09/2018 Time Performed: 22:06:28 PTAGE: 83 years EKG: ATRIAL FIBRILLATION NONSPECIFIC ST & T-WAVE ABNORMALITY ABNORMAL RHYTHM ECG PREVIOUS TRACING : 02/18/2018 14.15 Compared to previous tracing, ST/T wave changes now noted DOCTOR: Karan Rivera Interpretating Date/Time 09/12/2018 01:37:28
--- NOTE | 2018-09-12 09:53 | P.DS ---
Date of admission: 09/09/18 19:00 Primary care physician: Xavi Wen MD Brief History from admission: This patient is an 83-year-old female with a past medical history of thrombocytosis, atrial fibrillation on Eliquis, and uterine cancer in remission who presented to the ED after being found to have a hemoglobin of 6.2 on routine blood work. Patient reports that she was undergoing routine blood work for thrombocytosis when she was called later on in the day and was told that she had a critical value for her hemoglobin. Patient reports that she has been experiencing fatigue and tiredness over the last several weeks. During this time patient denies experiencing any dizziness, vision changes beyond those experienced after undergoing cataract surgery last week, as well as any changes in stool, bowel habits, or stool color. She denies visualizing any blood in the stool. She also denies any nausea or vomiting and reports that she normally has a bowel movement every 3 days with her last bowel movement being yesterday. Patient does report chronic shortness of breath due to her COPD. Patient reports that her last colonoscopy was 8-10 years ago which she says showed no polyps or issues. PMHx: Thrombocytosis diagnosed 4 years ago, HTN, COPD, CHF, Hypothyroidism, A- fib, Meds: Eliquis, atorvastatin, diltiazem, furosemide, hydroxyurea, levothyroxine Surgical Hx: Bilateral cataract surgery (one eye completed last Sunday and the other at the Sunday before that), total hysterectomy with bilateral salpingo-oophorectomy 1998 Allergies: Iodinated contrast oral and IV dye Family History: None Social: since 2010, 2 sons in good health, Worked for [employer] for 30 years, smoked since the age of 15 and has a 60 pack-year history, 1 cocktail vodka on the rocks nightly sometimes two drinks, no no illicit or recreational drug use Code: Full code Heme/ Onc Dr. Scott PCP Beatriz Esparza DS: Diagnosis - Discharge Diagnosis (1) Acute upper GI bleed Status: Acute (2) Anemia requiring transfusions Status: Acute (3) Atrial fibrillation Status: Acute (4) Abdominal aortic aneurysm (AAA) Status: Acute (5) Congestive heart failure (CHF) Status: Acute (6) Thrombocytosis Status: Acute (7) Hypertension Status: Acute (8) COPD (chronic obstructive pulmonary disease) Status: Acute (9) Hypothyroidism Status: Acute (10) Nutrition, metabolism, and development symptoms Status: Acute DS: Medications - Discharge Medications Prescriptions: pantoprazole [Protonix] 40 mg PO BID #90 tab DS: Summary - Time Spent with Patient Total time spent providing and/or coordinating discharge services: - Quality: VTE Deep Vein Thrombosis/Pulmonary Embolism Present on Admission: No Exam Vital signs: Intake & Output 09/11/18 09/12/18 09/12/18 18:59 06:59 18:59 Other: Date of Last Bowel Movement 09/10/18 Results Pending studies at discharge: Pending at discharge 09/10/18 07:42 Surgical [PTH] Routine - Impressions ITS Impressions Abdomen/Pelvis CT 09/09/18 16:35 CONCLUSION: 1. Infrarenal abdominal aortic aneurysm measuring 4.3 x 4.4 cm. 2. Multiple liver and splenic granulomas. 3. Diffuse atherosclerotic changes throughout the aorta. 4. Scattered diverticulosis involving the descending and sigmoid colon without inflammatory changes. Discharge Plan - Discharge Disposition Patient Disposition: 01 Discharge Home - Discharge Condition Condition: Stable - Discharge Order Discharge Orders: Discharge Order (Routine); Ordered 09/11/18 Ordered By: Yudy Dang - Physicians Team Primary Care Provider: Xavi Wen Attending Provider: Billy Daigle Other Providers: Frankie Ambrocio MD
== END 2018-09-11 10:57 | disposition home or self-care (01) ==
LOC: NEPE 14:39 → NEDA 19:00 → N06 20:40
PROVIDERS: ADMIT Family Medicine; ATTEND Family Medicine
PROC: PANENDO (2018-09-10 14:37)
PROC: COLONOS (2018-09-10 14:37)